=== PATIENT | female | born 1985 | race Caucasian/White ===

== ENCOUNTER 2024-01-22 02:36 | Emergency (ER) | payer SELFPAY ==
[2024-01-22] VITALS (8 sets, daily range): BP systolic 98–129; BP diastolic 56–88
[2024-01-22] MEDS: BENADRYL 25 MG IV (03:05)
[2024-01-22] MEDS: PEPCID 20 MG IV (03:05)
[2024-01-22] MEDS: ZOFRAN 4 MG IV (03:05)
[2024-01-22] MEDS: DECADRON 10 MG IV (03:09)
--- NOTE | 2024-01-22 03:14 | ED.GENMED ---
History of Present Illness
<VALORIE Daigle - Last Filed: 01/22/24 22:02>
General
Chief Complaint: Allergic Reaction
Source: patient
Time Seen by Provider: 01/22/24 03:00
Nursing documentation reviewed up to this point in time: agreed with
History of Present Illness
History of Present Illness:
Patient is a 38 year old female presenting to the ED with complaints of nausea and vomiting x 4 hours. She stated around 1130pm she was at work and ate a couple bites of chicken and rice with a sauce made by the [facility]. She states a couple minutes
later she sat down and had a bout of dizziness and bad nausea which caused her to vomit two times. That was her only meal of the day. After that, she went home and vomited 5 more times. Patient also presented with itching of her lips and petechiae
on her face and around her neck. There is also a generalized abdominal pain that is rated a 7/10 on a pain scale and does not radiate anywhere. It is described as dull and crampy. She presents chest tightness and dysphagia. She had allergic
reactions before but never had any nausea or vomiting associated with it. She states she didn't try any medication to alleviate symptoms. Patient denies fever chest pain changes in bowel movements hematemesis.
Patient is on albuterol and Symbicort for asthma. She admits to alcohol and tobacco use and has a history of substance abuse but is clean for the last 5 years.
Past History
<VALORIE Daigle - Last Filed: 01/22/24 22:02>
Past History
ED Past Medical History: Asthma, Hypothyroidism, Other (eczema, history of IV drug abuse quit in 2017, migraines, ovarian cysts) and Other (MRSA)
ED Past Surgical History: Appendectomy
Social History
Tobacco: Smoker
Alcohol: Daily (2-3 glasses of wine a day)
Drug: Former user
Personal: Single
Living: with family
Family History
Family History: Diabetes, CAD and Asthma
Review of Systems
<José Luis Lucila, [place] - Last Filed: 01/22/24 22:02>
Review of Systems
Allergies reviewed?: Yes
Constitutional: Reports no symptoms
EENT: Reports other (dysphagia)
Cardiac: Reports chest pain (chest tightness)
ABD/GI: Reports abdominal pain, nausea and vomiting
Skin: Reports itching
Neurological: Reports dizzy
Phy Exam
<José Luis [place], [place] - Last Filed: 01/22/24 22:02>
General Physical Exam
General Presentation: mild distress
General age: appears stated age
General Habitus: normal
General Mental: alert
ENT Exam
ENT Exam: pharynx normal
Cardiovascular Exam
Cardiovascular Exam: regular rate/rhythm, no edema, no gallop, no JVD and no murmur
Pulmonary Exam
Pulmonary Exam: lungs clear, no respiratory distress, no rales, chest non tender, no crackles, no rhonchi, no stridor, no wheezing and no cough
Gastrointestinal Exam
Gastrointestinal Exam: normal bowel sounds, non tender, soft, no organomegaly, no pulsatile mass, non distended and no cva tenderness
Skin Exam
Skin Exam: erythema and petechia (around neck and face )
Course
<José Luisayala Gaytan ROSEANN - Last Filed: 01/22/24 22:02>
Orders/Labs/Results
Orders:
Orders
01/22/24 02:53
Diphenhydramine [Benadryl] 50 mg .ROUTE .STK-MED ONE
Famotidine [Pepcid] 20 mg .ROUTE .STK-MED ONE
Ondansetron Injectable [Zofran] 4 mg .ROUTE .STK-MED ONE
01/22/24 03:04
Diphenhydramine [Benadryl] 25 mg IV NOW STA
Famotidine [Pepcid] 20 mg IV NOW STA
Ondansetron Injectable [Zofran] 4 mg IV NOW STA
01/22/24 03:08
Dexamethasone Sod Phosphate [Decadron] 20 mg .ROUTE .STK-MED ONE
01/22/24 03:09
Dexamethasone Sod Phosphate [Decadron] 10 mg IV NOW STA
Vital Signs
Initial and Last Documented VS:
Initial Vital Signs
Pulse Resp Pulse Ox
83 13 100
01/22/24 02:42 01/22/24 02:42 01/22/24 02:42
Last Documented Vital Signs
Temp Pulse Resp BP Pulse Ox
98.0 F 67 16 115/57 94
01/22/24 08:00 01/22/24 08:00 01/22/24 08:00 01/22/24 08:00 01/22/24 08:00
<Franco Fuentes, DO - Last Filed: 01/22/24 05:31>
Orders/Labs/Results
Orders:
Orders
01/22/24 02:53
Diphenhydramine [Benadryl] 50 mg .ROUTE .STK-MED ONE
Famotidine [Pepcid] 20 mg .ROUTE .STK-MED ONE
Ondansetron Injectable [Zofran] 4 mg .ROUTE .STK-MED ONE
01/22/24 03:04
Diphenhydramine [Benadryl] 25 mg IV NOW STA
Famotidine [Pepcid] 20 mg IV NOW STA
Ondansetron Injectable [Zofran] 4 mg IV NOW STA
01/22/24 03:08
Dexamethasone Sod Phosphate [Decadron] 20 mg .ROUTE .STK-MED ONE
01/22/24 03:09
Dexamethasone Sod Phosphate [Decadron] 10 mg IV NOW STA
Vital Signs
Initial and Last Documented VS:
Initial Vital Signs
Pulse Resp Pulse Ox
83 13 100
01/22/24 02:42 01/22/24 02:42 01/22/24 02:42
Last Documented Vital Signs
Temp Pulse Resp BP Pulse Ox
98.0 F 67 16 115/57 94
01/22/24 08:00 01/22/24 08:00 01/22/24 08:00 01/22/24 08:00 01/22/24 08:00
<VALORIE Daigle - Last Filed: 01/22/24 22:02>
MDM/Problems Addressed
Differential Diagnosis Includes:
allergic reaction
MDM/Problems Addressed:
give Benadryl steroids and Zofran for symptoms, monitor 430a update patients symptoms alleviated from medication get ready to discharge
<VALORIE Daigle - Last Filed: 01/22/24 22:02>
*Critical Care Note
Total Time (30-74mins, 75-104mins- exclusive of procedures): Not Applicable
ED Attending Note
<VALORIE Daigle - Last Filed: 01/22/24 22:02>
-
Portions of this chart may have been created with voice recognition software.� Occasional wrong word or��sound alike� substitutions may have occurred due to the inherent limitations of voice recognition software.
<Franco Fuentes DO - Last Filed: 01/22/24 05:31>
ED Attending Note
Patient seen and examined by attending physician: Yes
I performed the substantive portion of visit, reviewed & personally made and approve the management plan that is documented in note by myself or VIVIAN.: Yes
ED Attending Note:
Pleasant 38-year-old female that presents to the emergency department after possible allergic reaction. 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 She states that it had a unique sauce on it which she
might have been allergic to. She states that she took 3 bites and became nauseated. She states that she had dizziness. She vomited twice. She went home and vomited 5 more times. She started to develop pruritus and abdominal pain. She states
that she has had the symptoms before with previous allergic reactions. She came into the emergency department for evaluation. She has had anaphylaxis in the past secondary to food allergies. Does not have any epinephrine at home. Patient was
seen in conjunction with the PA student. I have reviewed and agree with the history and treatment plan presented. On my independent physical exam, patient is awake, alert, and oriented x3 minimal acute distress. Heart is regular rate and rhythm.
Lungs are clear to auscultation bilaterally. Abdomen is soft with generalized tenderness to palpation. There is no stridor and no lungs. No wheezing.
Discharge Plan
Departure
Patient Disposition: Home (Routine Discharge)
Date of Disposition: 01/22/24
Time of Disposition: 05:28
Patient with high blood pressure during this ER visit?: Yes
Condition: Good
Discharge Problem:
Allergic reaction
Instructions: Liz (DC), Allergic Reaction ED, BLOOD PRESSURE
Prescriptions:
New
prednisone 50 mg Tablet
50 mg PO DAILY Qty: 5 0RF
epinephrine [EpiPen] 0.3 mg/0.3 mL Auto-Injector
0.3 mg IM .STAT PRN (Reason: anaphylaxis) Qty: 1 0RF
albuterol sulfate [Proventil HFA] 90 mcg/actuation HFA aerosol inhaler
2 puff inhalation QID PRN (Reason: shortness of breath or wheezing) Qty: 8.5 0RF
famotidine [Pepcid] 40 mg tablet
40 mg PO DAILY Qty: 10 0RF
No Action
budesonide-formoterol [Symbicort] 1 PUFF HFA aerosol inhaler
2 puff inhalation R BID
albuterol sulfate 1 PUFF HFA aerosol inhaler
2 puff inhalation R Q4HPRN PRN (Reason: SOB or wheezing) 30 Days Qty: 2 0RF
lithium carbonate 300 MG capsule
900 mg PO HS 30 Days Qty: 90 0RF
ibuprofen 600 MG tablet
600 mg PO Q6 PRN (Reason: pain) 30 Days 0RF
Referrals:
Brendon Jacobsen DO [Family Provider] -
Activity Restrictions/Additional Instructions:
Your prescriptions were transmitted to the pharmacy you requested.
It was a pleasure meeting you and taking part in your care. We hope for your continued healing and wellness.
Please read discharge instructions in their entirety. However, they are for general education and may not describe your exact diagnosis at discharge. Information on your ER visit and medical conditions were discussed with you along with appropriate
follow up information...
If indicated, please take your medications as instructed and indicated on discharge paperwork.
Please schedule a follow up appointment as directed. Call to schedule an appointment
Please return to the emergency department with ANY change in, persisting, or worsening of symptoms. If any of your symptoms do not improve, or persist, or become more severe within 6-12 hours, please return to the emergency department for further
care.
Please return to the emergency department if you develop a headache, neck pain/stiffness, fever greater than 100.4F, chest pain, shortness of breath, persistent nausea, vomiting, slurred speech, difficulty walking, numbness/tingling, weakness, signs
of infection or any other symptoms that are worrisome to you.
If you have any questions or concerns please do not hesitate to call the Hospital at or E-mail me directly at [email or web address]
Interventions
Interventions:
*Risk Screen - Suicide Last Done: 01/22/24 02:40
*General Assessment Last Done: 01/22/24 02:40
*Neglect/Abuse Screening Last Done: 01/22/24 02:40
ED- Fall Risk Assessment Last Done: 01/22/24 05:43
*ED COVID-19 Vaccine History Last Done: 01/22/24 03:17
*Nursing Disposition Last Done: 01/22/24 08:00
ED- Cardiac Assessment Last Done: 01/22/24 05:46
ED- Pulmonary Assessment Last Done: 01/22/24 05:46
ED-Skin Assessment Last Done: 01/22/24 05:46
Discharge Date and Time
Discharge Date/Time: 01/22/24 08:24
Print Language: [id number]
== END 2024-01-22 08:24 | disposition home or self-care (01) ==
LOC: EMR 02:36
PROVIDERS: EMERGENCY PHYSICIAN Student in an Organized Health Care Education/Training Program; FAMILY PHYSICIAN Family Medicine
DX: T78.40XA Allergy, unspecified, initial encounter (principal); Y92.9 Unspecified place or not applicable; R11.2 Nausea with vomiting, unspecified; J45.909 Unspecified asthma, uncomplicated; E03.9 Hypothyroidism, unspecified; F17.200 Nicotine dependence, unspecified, uncomplicated; Z82.49 Family history of ischemic heart disease and other diseases of the circulatory system; Z83.3 Family history of diabetes mellitus; Z90.49 Acquired absence of other specified parts of digestive tract
CPT/HCPCS: 99282; 96374; 96375